=== PATIENT | male | born 1960 | race Caucasian/White ===

== ENCOUNTER 2017-12-01 10:58 | Emergency (ER) | payer MEDICAID ==
[~2017-12-01] VITALS: Ht 182.9 cm; Wt 103.0 kg
[~2017-12-01 10:58] MED LIST: ASPI-974 PO; ATOR-2 PO; CARV-50 PO; CLOP75TA15 PO; LISI-600 PO; NITR0.4T48 SL
[2017-12-01 11:07] VITALS: BP 147/95
[2017-12-01] MEDS ORDERED: CEPH500C5 PO (12:10)
[2017-12-01] MEDS ORDERED: SULF1TAB49 PO (12:10)
[2017-12-02] MEDS ORDERED: FURO-150 PO (14:58)
== END 2017-12-01 12:24 | disposition home or self-care (01) ==
LOC: ER 10:59
DX: L03.115 Cellulitis of right lower limb (principal); L02.415 Cutaneous abscess of right lower limb; Z79.82 Long term (current) use of aspirin
CPT/HCPCS: 99283

== ENCOUNTER 2017-12-02 12:53 | Inpatient (IN) | payer MEDICAID ==
[~2017-12-02] VITALS: Ht 182.9 cm; Wt 88.0 kg
[~2017-12-02 12:53] MED LIST changes: +CEPH500C5 PO; +SULF1TAB49 PO
[2017-12-02] MEDS ORDERED: piperacillin/tazo 3.375gm/50ml 50 ML IV ONE (13:30)
[2017-12-02] MEDS ORDERED: vancomycin/NS 1 GM ADD-VANTAGE 250 ML IV ONE (13:30)
[2017-12-02] MEDS ORDERED: normal saline 1000ML IV soln IV ONE (13:30)
[2017-12-02 13:55] LABS: BASOPHILS % (AUTO) 0.1 % (0-1); EOSINOPHILS % (AUTO) 0.2 % (0-6); HEMATOCRIT 45.1 % (42.0-52.0); HEMOGLOBIN 15.4 g/dl (14.0-17.9); LYMPHOCYTES # (AUTO) 0.3 X10'3 (1.1-4.8); LYMPHOCYTES % (AUTO) 2.9 % (21-51); MEAN CORPUSCULAR HEMOGLOBIN 32.4 PG (27.0-31.0); MEAN CORPUSCULAR HGB CONC 34.1 % (33.0-36.5); MEAN CORPUSCULAR VOLUME 95.1 FL (78-98); MONOCYTES # (AUTO) 0.3 X10'3 (0-0.9); NEUTROPHILS # (AUTO) 10.7 X10'3 (1.8-7.7); NEUTROPHILS % (AUTO) 93.8 % (42-75); PLATELET COUNT 269 X10'3 (140-440); RED BLOOD COUNT 4.74 X10'6 (4.70-6.10); RED CELL DISTRIBUTION WIDTH 13.3 % (11.5-14.5); WHITE BLOOD COUNT 11.4 X10'3 (4.5-11.0)
[2017-12-02 14:09] LABS: PARTIAL THROMBOPLASTIN TIME 28 SECONDS (22-32); PROTHROMBIN TIME 10.3 SECONDS (9.0-12.0)
[2017-12-02 14:20] LABS: ALANINE AMINOTRANSFERASE 51 U/L (12-78); ALBUMIN 3.5 G/DL (3.4-5.0); ALBUMIN/GLOBULIN RATIO 0.7 (1.1-1.5); ALKALINE PHOSPHATASE 111 IU/L (46-116); ANION GAP 11 (8-16); ASPARTATE AMINO TRANSFERASE 30 U/L (10-37); BILIRUBIN,TOTAL 0.3 MG/DL (0.1-1.0); BLOOD UREA NITROGEN 17 MG/DL (7-18); BUN/CREATININE RATIO 9.9 (5.4-32.0); CHLORIDE 99 MMOL/L (99-107); CREATININE 1.72 MG/DL (0.60-1.10); GLUCOSE 141 MG/DL (70-104); POTASSIUM 4.4 MMOL/L (3.5-5.1); SODIUM 132 MMOL/L (135-145); TOTAL CARBON DIOXIDE 22.3 MMOL/L (24-32); TOTAL PROTEIN 8.2 G/DL (6.4-8.2); eGFR 41 ML/MIN
[2017-12-02] MEDS ORDERED: morphine 4 MG/ML inj SYRINge IV ONE (14:20)
[2017-12-02] MEDS ORDERED: ondansetron/PF 4mg/2ml inj IV ONE (14:20)
[2017-12-02] MEDS ORDERED: FURO-150 PO (14:58)
[2017-12-02 15:02] LABS: CLARITY,URINE CLEAR (Clear); COLOR,URINE STRAW (Yellow); GLUCOSE, URINE NEGATIVE (Neg); KETONES,URINE NEGATIVE (Neg); LEUKOCYTE ESTERASE ,URINE NEGATIVE (Neg); NITRITES, URINE NEGATIVE (Neg); OCCULT BLOOD,URINE NEGATIVE (Neg); PH,URINE 5.5 (4.8-8.0); PROTEIN,URINE NEGATIVE (Neg); UROBILINOGEN,URINE 0.2 E.U/dL (0.2-1.0)
[2017-12-02 15:15] LABS: UA COLLECTION TYPE URINAL
[2017-12-02] MEDS ORDERED: magnesium 4gm in 100ml NS 100 ML IV PRN (17:15)
[2017-12-02] MEDS ORDERED: acetaminophen 325mg tablet PO PRN (17:15)
[2017-12-02] MEDS ORDERED: ondansetron/PF 4mg/2ml inj IV PRN (17:15)
[2017-12-02] MEDS ORDERED: magnesium 1gm/100ml D5W IVPB 100 ML IV PRN (17:15)
[2017-12-02] MEDS ORDERED: morphine 4 MG/ML inj SYRINge IV PRN (17:15)
[2017-12-02] MEDS ORDERED: potassium Cl 40MEQ/NS 500ml 500 ML IV PRN ×2 (17:15)
[2017-12-02] MEDS ORDERED: potassium Cl 20 mEq SR tablet PO PRN ×2 (17:15)
[2017-12-02] MEDS: normal saline 1000ml 1,000 ML IV SCH ×2 (17:23→19:41)
[2017-12-02 19:30] VITALS: BP 100/44
[2017-12-02] MEDS: heparin, porcine 5000 units/ml vial SQ SCH (20:00)
[2017-12-02] MEDS: vancomycin inj 1,250 MG in normal saline 250ml IV soln 250 ML IV SCH (20:49)
[2017-12-02] MEDS ORDERED: temazepam 15mg capsule PO PRN (21:00)
[2017-12-02] MEDS: HYDROcodone/acetaminophen 5mg/325mg tablet PO PRN (22:05)
[2017-12-03] VITALS (7 sets, daily range): BP systolic 94–133; BP diastolic 44–79
[2017-12-03 06:29] LABS: BASOPHILS % (AUTO) 0 % (0-1); EOSINOPHILS % (AUTO) 0.3 % (0-6); HEMATOCRIT 38.9 % (42.0-52.0); HEMOGLOBIN 13.2 g/dl (14.0-17.9); LYMPHOCYTES # (AUTO) 0.6 X10'3 (1.1-4.8); LYMPHOCYTES % (AUTO) 8.2 % (21-51); MEAN CORPUSCULAR HEMOGLOBIN 32.5 PG (27.0-31.0); MEAN CORPUSCULAR HGB CONC 34.1 % (33.0-36.5); MEAN CORPUSCULAR VOLUME 95.4 FL (78-98); MEAN PLATELET VOLUME 7.9 FL (7.4-10.4); MONOCYTES # (AUTO) 0.3 X10'3 (0-0.9); MONOCYTES % (AUTO) 4.2 % (2-12); NEUTROPHILS # (AUTO) 6.3 X10'3 (1.8-7.7); NEUTROPHILS % (AUTO) 87.3 % (42-75); PLATELET COUNT 242 X10'3 (140-440); RED BLOOD COUNT 4.07 X10'6 (4.70-6.10); RED CELL DISTRIBUTION WIDTH 13.8 % (11.5-14.5); WHITE BLOOD COUNT 7.2 X10'3 (4.5-11.0)
[2017-12-03 06:45] LABS: ALBUMIN 2.8 G/DL (3.4-5.0); ANION GAP 9 (8-16); BLOOD UREA NITROGEN 13 MG/DL (7-18); BUN/CREATININE RATIO 8.6 (5.4-32.0); CALCIUM 8.2 MG/DL (8.5-10.1); CHLORIDE 104 MMOL/L (99-107); CREATININE 1.51 MG/DL (0.60-1.10); GLUCOSE 106 MG/DL (70-104); MAGNESIUM 1.4 MG/DL (1.5-2.4); POTASSIUM 4.1 MMOL/L (3.5-5.1); SODIUM 136 MMOL/L (135-145); TOTAL CARBON DIOXIDE 23.4 MMOL/L (24-32); eGFR 48 ML/MIN
[2017-12-03] MEDS: vancomycin inj 1,250 MG in normal saline 250ml IV soln 250 ML IV SCH ×2 (08:00→19:46)
[2017-12-03] MEDS: heparin, porcine 5000 units/ml vial SQ SCH ×2 (08:00→19:46)
[2017-12-03] MEDS: magnesium Cl slow-release 64mg tablet PO PRN ×2 (08:00→19:59)
[2017-12-03] MEDS: K and/or MAG REPLACEMENT MC SCH (08:05)
[2017-12-03] MEDS: HYDROcodone/acetaminophen 5mg/325mg tablet PO PRN ×2 (08:11→18:59)
[2017-12-03] MEDS ORDERED: nitroGLYCERIN 0.4mg SUBLingual tab SL SCH (10:00)
[2017-12-03] MEDS: carVEDilol 12.5mg tablet PO SCH ×2 (10:47→19:45)
[2017-12-03] MEDS: clopidogrel 75mg tablet PO SCH (10:47)
[2017-12-03] MEDS: atorvastatin 20mg tablet PO SCH (10:48)
[2017-12-03] MEDS: lisinopril 20mg tablet PO SCH (10:48)
[2017-12-03] MEDS: aspirin 325mg tablet PO SCH (10:48)
[2017-12-03] MEDS: lactobacillus rhamnosus 10,000 MMU CELLS/CAPSULE PO SCH (19:45)
[2017-12-03] MEDS ORDERED: carVEDilol 12.5mg tablet PO SCH (20:00)
[2017-12-04] VITALS: BP 110/76
[2017-12-04] MEDS: HYDROcodone/acetaminophen 5mg/325mg tablet PO PRN (02:16)
[2017-12-04 07:09] VITALS: BP 120/72
[2017-12-04] MEDS ORDERED: VANCOMYCIN LEVEL IV ONE (07:30)
[2017-12-04] MEDS ORDERED: atorvastatin 20mg tablet PO SCH (08:00)
[2017-12-04] MEDS ORDERED: lisinopril 20mg tablet PO SCH (08:00)
[2017-12-04] MEDS: K and/or MAG REPLACEMENT MC SCH (08:00)
[2017-12-04] MEDS ORDERED: clopidogrel 75mg tablet PO SCH (08:00)
[2017-12-04] MEDS ORDERED: aspirin 325mg tablet PO SCH (08:00)
[2017-12-04 08:28] LABS: BASOPHILS % (AUTO) 0.4 % (0-1); EOSINOPHILS # (AUTO) 0.4 X10'3 (0-0.9); EOSINOPHILS % (AUTO) 6.6 % (0-6); HEMATOCRIT 38.7 % (42.0-52.0); LYMPHOCYTES # (AUTO) 1.4 X10'3 (1.1-4.8); LYMPHOCYTES % (AUTO) 22.8 % (21-51); MEAN CORPUSCULAR HEMOGLOBIN 32.3 PG (27.0-31.0); MEAN CORPUSCULAR HGB CONC 33.7 % (33.0-36.5); MEAN CORPUSCULAR VOLUME 95.9 FL (78-98); MEAN PLATELET VOLUME 8.3 FL (7.4-10.4); MONOCYTES # (AUTO) 0.6 X10'3 (0-0.9); MONOCYTES % (AUTO) 9.4 % (2-12); NEUTROPHILS # (AUTO) 3.6 X10'3 (1.8-7.7); NEUTROPHILS % (AUTO) 60.8 % (42-75); PLATELET COUNT 250 X10'3 (140-440); RED BLOOD COUNT 4.04 X10'6 (4.70-6.10); RED CELL DISTRIBUTION WIDTH 13.8 % (11.5-14.5); WHITE BLOOD COUNT 5.9 X10'3 (4.5-11.0)
[2017-12-04 08:52] LABS: ALBUMIN 2.7 G/DL (3.4-5.0); ANION GAP 8 (8-16); BLOOD UREA NITROGEN 14 MG/DL (7-18); BUN/CREATININE RATIO 12.3 (5.4-32.0); CALCIUM 8.7 MG/DL (8.5-10.1); CHLORIDE 105 MMOL/L (99-107); CREATININE 1.14 MG/DL (0.60-1.10); GLUCOSE 99 MG/DL (70-104); MAGNESIUM 1.8 MG/DL (1.5-2.4); POTASSIUM 4.1 MMOL/L (3.5-5.1); SODIUM 136 MMOL/L (135-145); TOTAL CARBON DIOXIDE 23.5 MMOL/L (24-32); VANCOMYCIN,TROUGH 13.8 UG/ML (6.0-14.0); eGFR 66 ML/MIN
[2017-12-04] MEDS: clopidogrel 75mg tablet PO SCH (08:54)
[2017-12-04] MEDS: vancomycin inj 1,250 MG in normal saline 250ml IV soln 250 ML IV SCH (08:54)
[2017-12-04] MEDS: carVEDilol 12.5mg tablet PO SCH (08:54)
[2017-12-04] MEDS: lisinopril 20mg tablet PO SCH (08:54)
[2017-12-04] MEDS: atorvastatin 20mg tablet PO SCH (08:54)
[2017-12-04] MEDS: lactobacillus rhamnosus 10,000 MMU CELLS/CAPSULE PO SCH (08:55)
[2017-12-04] MEDS: aspirin 325mg tablet PO SCH (08:55)
[2017-12-04] MEDS: heparin, porcine 5000 units/ml vial SQ SCH (08:55)
[2017-12-04 13:00] VITALS: BP 108/71
[2017-12-06] MEDS ORDERED: VANCOMYCIN LEVEL IV ONE (07:30)
== END 2017-12-04 14:47 | disposition left against medical advice (07) | DRG 710 ==
LOC: ER 12:54 → ED HOLD 17:12 → SUR 3N 19:30
PROVIDERS: ADMIT Internal Medicine; ATTEND Family Medicine
PROC: 0J9N0ZZ Drainage of Right Lower Leg Subcutaneous Tissue and Fascia, Open Approach (ICD-10-PCS; principal; 2017-12-02)
DX: A41.9 Sepsis, unspecified organism (principal); I50.23 Acute on chronic systolic (congestive) heart failure; I11.0 Hypertensive heart disease with heart failure; E78.5 Hyperlipidemia, unspecified; F17.210 Nicotine dependence, cigarettes, uncomplicated; I25.10 Atherosclerotic heart disease of native coronary artery without angina pectoris; L02.419 Cutaneous abscess of limb, unspecified; L03.119 Cellulitis of unspecified part of limb; Z95.5 Presence of coronary angioplasty implant and graft; Z79.899 Other long term (current) drug therapy; W57.XXXA Bitten or stung by nonvenomous insect and other nonvenomous arthropods, initial encounter; Y93.89 Activity, other specified; Y92.89 Other specified places as the place of occurrence of the external cause; Y99.8 Other external cause status
CPT/HCPCS: 36415; 71045; 71250; 73560; 80048; 80053; 80202; 81003; 83605; 83735; 84145; 85025; 85610; 85730; 87040; 87070; 87077; 87186; 96365; 96366; 96368; 96375; 96376; 99285; A6449; J1644; J2270; J2405; J2543; J3370; J7030